=== PATIENT | female | born 1945 | race African-American/Black ===

== ENCOUNTER 2023-06-25 17:31 | Emergency (ER) | payer MEDICARE ==
[2023-06-25 18:57] LABS: Bilirubin Neg (Negative); Blood, Urine Negative (Negative); Clarity Slightly Cloudy (Clear); Glucose, Urine (Dipstick) Normal (Negative); Ketone, Urine Negative (Negative); Leukocyte 25 (Negative); Nitrite Negative (Negative); Protein, Urine (Dipstick) 15 mg/dl (Neg-Trace)
[2023-06-25 19:08] LABS: Bacteria/HPF 1+ HPF (None Seen); CAUTI Indications for Culture Pelvic or flank pain; Mucous/LPF 2+ LPF (<2+); RBC/HPF 0-3 HPF (0-3); WBC/HPF 0-3 HPF (0-3)
[2023-06-25 19:10] LABS: Urine Culture Reflex No No
[2023-06-25] MEDS ORDERED: Dexamethasone 10 MG/ML VIAL ONE (19:57)
== END 2023-06-25 20:15 | disposition home or self-care (01) ==
LOC: CSHERS 17:31
DX: M54.50 Low back pain, unspecified (principal); M25.561 Pain in right knee; G89.29 Other chronic pain; R30.0 Dysuria; E11.9 Type 2 diabetes mellitus without complications; I10 Essential (primary) hypertension
CPT/HCPCS: 81001; 87086; 96372; 99283; J1100